=== PATIENT | female | born 1940 | race Two or more races ===

== ENCOUNTER 2018-01-19 14:55 | Emergency (ER) | payer OTHER ==
[~2018-01-19] VITALS: Ht 157.5 cm; Wt 69.9 kg
[~2018-01-19 14:55] MED LIST: AMLODIPINE BESI25 GM; AMOX1TAB12 PO; CIPRO750 MG PO; CLONAZEPAM1 MG PO; COLACE100 MG PO; DICLOFENAC SODI50 MG PO; METHYLPRED4 MG/DOSE- PO; METOPROLOL SUCC25 MG; NEURONTIN300 MG PO; NEURONTIN800 MG PO; PERCOCET 10-3251 TAB; PERCOCET 5/3251 TAB PO; SIMVASTATIN5 MG; SULFAMETHOXAZOL1 TA6 PO; SYNTHROID50 MCG
== END 2018-01-19 18:07 | disposition home or self-care (01) ==
LOC: ER 14:55
DX: R42 Dizziness and giddiness (principal)

== ENCOUNTER 2018-06-01 15:52 | Outpatient (CLI) | payer OTHER | END 2018-06-01 16:30 | disposition home or self-care (01) | LOC: RAD 15:52 | DX: M25.552 Pain in left hip (principal); M25.551 Pain in right hip ==

== ENCOUNTER 2019-08-15 09:44 | Outpatient (CLI) | payer OTHER | END 2019-08-15 09:45 | disposition home or self-care (01) | LOC: RAD 09:44 | DX: M21.762 Unequal limb length (acquired), left tibia (principal) ==

== ENCOUNTER 2021-01-28 13:52 | Emergency (ER) | payer OTHER ==
[~2021-01-28] VITALS: Ht 157.5 cm; Wt 68.0 kg
[2021-01-28] MEDS ORDERED: ORPHENADRINE C100 MG PO (19:18)
[2021-01-28] MEDS ORDERED: NAPROXEN250 MG PO (19:18)
[2021-01-28] MEDS ORDERED: MEDROLPACK PO (19:18)
== END 2021-01-28 19:40 | disposition home or self-care (01) ==
LOC: ER 13:52
DX: M25.551 Pain in right hip (principal); M54.5 Low back pain; R10.2 Pelvic and perineal pain; Z03.818 Encounter for observation for suspected exposure to other biological agents ruled out

== ENCOUNTER 2021-05-12 13:04 | Emergency (ER) | payer OTHER ==
[~2021-05-12] VITALS: Ht 157.5 cm; Wt 65.8 kg
[~2021-05-12 13:04] MED LIST changes: +MEDROLPACK PO; +NAPROXEN250 MG PO; +ORPHENADRINE C100 MG PO
[2021-05-12] MEDS ORDERED: PLAVIX75 MG (13:55)
[2021-05-12] MEDS ORDERED: AVAPRO150 MG (13:55)
[2021-05-12] MEDS ORDERED: LIPITOR40 M1 (13:56)
[2021-05-12] MEDS ORDERED: TYLENOL ARTHRI650 MG (13:56)
== END 2021-05-12 17:54 | disposition home or self-care (01) ==
LOC: ER 13:04
DX: M75.51 Bursitis of right shoulder (principal); M13.811 Other specified arthritis, right shoulder

== ENCOUNTER 2021-12-18 13:32 | Outpatient (CLI) | payer OTHER ==
[~2021-12-18 13:32] MED LIST changes: +AVAPRO150 MG; +LIPITOR40 M1; +PLAVIX75 MG; +TYLENOL ARTHRI650 MG
== END 2021-12-18 13:41 | disposition home or self-care (01) ==
LOC: RAD 13:32
PROVIDERS: ATTEND Urology
DX: M24.672 Ankylosis, left ankle (principal)

== ENCOUNTER 2022-01-03 11:32 | Outpatient (CLI) | payer OTHER | END 2022-01-03 11:39 | disposition home or self-care (01) | LOC: SONOGRAMA 11:32 | PROVIDERS: ATTEND Internal Medicine Cardiovascular Disease | DX: N39.0 Urinary tract infection, site not specified (principal) ==

== ENCOUNTER 2022-11-02 21:02 | Emergency (ER) | payer OTHER ==
[~2022-11-02] VITALS: Ht 160 cm; Wt 63.5 kg
== END 2022-11-03 10:10 | disposition designated cancer center or children's hospital (05) ==
LOC: ER 21:02
DX: I24.9 Acute ischemic heart disease, unspecified (principal); I10 Essential (primary) hypertension; E78.00 Pure hypercholesterolemia, unspecified; Z88.2 Allergy status to sulfonamides; Z91.041 Radiographic dye allergy status; Z91.013 Allergy to seafood

== ENCOUNTER 2022-12-23 09:25 | Outpatient (CLI) | payer OTHER | END 2022-12-23 09:32 | disposition home or self-care (01) | LOC: SONOGRAMA 09:25 | PROVIDERS: ATTEND Otolaryngology | DX: R31.1 Benign essential microscopic hematuria (principal); R13.10 Dysphagia, unspecified ==

== ENCOUNTER → 2023-01-15 | Outpatient (CLI) | payer OTHER | END | disposition home or self-care (01) | LOC: TOM 10:03 | PROVIDERS: ATTEND Internal Medicine Cardiovascular Disease | DX: R51.9 Headache, unspecified (principal); I63.50 Cerebral infarction due to unspecified occlusion or stenosis of unspecified cerebral artery; I10 Essential (primary) hypertension ==

== ENCOUNTER 2023-05-29 12:05 | Outpatient (CLI) | payer OTHER | END 2023-05-29 12:09 | disposition home or self-care (01) | LOC: RAD 12:05 | PROVIDERS: ATTEND Internal Medicine Cardiovascular Disease | DX: M12.9 Arthropathy, unspecified (principal) ==

== ENCOUNTER → 2023-10-22 | Outpatient (CLI) | payer OTHER | END | disposition home or self-care (01) | LOC: RAD 13:00 | PROVIDERS: ATTEND Internal Medicine Pulmonary Disease | DX: J01.90 Acute sinusitis, unspecified (principal); R07.9 Chest pain, unspecified ==

== ENCOUNTER 2024-01-15 10:24 | Outpatient (CLI) | payer OTHER ==
[~2024-01-15 10:24] MED LIST changes: +DICLOFENAC POTA50 MG PO
== END 2024-01-15 10:32 | disposition home or self-care (01) ==
LOC: RAD 10:24
PROVIDERS: ATTEND Psychiatry & Neurology Clinical Neurophysiology
DX: M12.9 Arthropathy, unspecified (principal)

== ENCOUNTER 2024-06-16 17:43 | Emergency (ER) | payer OTHER ==
[~2024-06-16] VITALS: Ht 157.5 cm; Wt 65.8 kg
[2024-06-16] MEDS ORDERED: EZETIMIBE10 MG (18:23)
[2024-06-16] MEDS ORDERED: SYNTHROID75 MCG (18:23)
[2024-06-16] MEDS ORDERED: RANOLAZINE ER500 MG (18:23)
[2024-06-16] MEDS ORDERED: ROSUVASTATIN CA40 MG (18:23)
[2024-06-16] MEDS ORDERED: CHILDREN'S ASPI81 MG (18:24)
[2024-06-16] MEDS ORDERED: AMOX1TAB5 PO (19:15)
[2024-06-16] MEDS ORDERED: XANAX0.25 MG PO (19:17)
[2024-06-16] MEDS ORDERED: TETANUS & DIPHTHERIA TOX,ADULT 0.5 ML VIAL IM STA (19:19)
[2024-06-16] MEDS ORDERED: TETANUS DIPHTHERIA TOX. ADSOR 5 ML VIAL IM ONE (19:24)
== END 2024-06-16 19:59 | disposition home or self-care (01) ==
LOC: ER 17:45
DX: S81.812A Laceration without foreign body, left lower leg, initial encounter (principal); W54.0XXA Bitten by dog, initial encounter; Y93.89 Activity, other specified; Y92.89 Other specified places as the place of occurrence of the external cause; Z91.041 Radiographic dye allergy status; Z91.013 Allergy to seafood; E78.00 Pure hypercholesterolemia, unspecified; I10 Essential (primary) hypertension; E03.8 Other specified hypothyroidism; I20.89 Other forms of angina pectoris
CPT/HCPCS: 90471; 90714; 99282; J1670

== ENCOUNTER 2024-06-28 10:31 | Outpatient (CLI) | payer OTHER ==
[~2024-06-28 10:31] MED LIST changes: +AMOX1TAB5 PO; +CHILDREN'S ASPI81 MG; +EZETIMIBE10 MG; +RANOLAZINE ER500 MG; +ROSUVASTATIN CA40 MG; +SYNTHROID75 MCG; +XANAX0.25 MG PO
== END 2024-06-28 10:58 | disposition home or self-care (01) ==
LOC: TOM 10:31
DX: S82.62XA Displaced fracture of lateral malleolus of left fibula, initial encounter for closed fracture (principal); M19.011 Primary osteoarthritis, right shoulder; M19.012 Primary osteoarthritis, left shoulder

== ENCOUNTER 2024-07-26 14:43 | Outpatient (CLI) | payer OTHER | END 2024-07-26 14:53 | disposition home or self-care (01) | LOC: TOM 14:43 | PROVIDERS: ATTEND Psychiatry & Neurology Clinical Neurophysiology | DX: S06.330A Contusion and laceration of cerebrum, unspecified, without loss of consciousness, initial encounter (principal) ==

== ENCOUNTER 2024-07-26 15:46 | Emergency (ER) | payer OTHER ==
[~2024-07-26] VITALS: Ht 157.5 cm; Wt 64.4 kg
[2024-07-26 16:27] VITALS: BP 131/77; O2SAT 99
[2024-07-26 17:10] LABS: HEMOGLOBIN 11.4 g/dL (12.0-15.00); MEAN CELL VOLUME 86.1 fL (80.00-100.00); MEAN CORPUSCULAR HEMOGLOBIN 28.1 pg (27.00-32.0); MEAN CORPUSCULAR HGB CONC 32.6 g/dl (32.0-36.0); PLATELET COUNT 252 K/uL (150-450); RED BLOOD COUNT 4.07 M/uL (4.00-6.00); RED CELL DISTRIBUTION WIDTH 17.4 % (11.5-14.5)
== END 2024-07-26 19:48 | disposition home or self-care (01) ==
LOC: ER 15:47
PROVIDERS: General Practice
DX: R53.81 Other malaise (principal); R53.1 Weakness; Z20.822 Contact with and (suspected) exposure to COVID-19; I10 Essential (primary) hypertension; Z91.013 Allergy to seafood; Z91.041 Radiographic dye allergy status

== ENCOUNTER → 2024-08-19 12:03 | Outpatient (CLI) | payer OTHER | END | disposition home or self-care (01) | LOC: NUCLEAR 12:03 | PROVIDERS: ATTEND Internal Medicine Endocrinology, Diabetes & Metabolism | DX: M85.89 Other specified disorders of bone density and structure, multiple sites (principal); Z13.820 Encounter for screening for osteoporosis; M81.0 Age-related osteoporosis without current pathological fracture ==

== ENCOUNTER 2024-10-13 13:50 | Emergency (ER) | payer OTHER ==
[~2024-10-13] VITALS: Ht 157.5 cm; Wt 64.4 kg
[2024-10-13] MEDS ORDERED: AZITHROMYCIN 500 MG VIAL IV ONE ×2 (16:36→16:45)
[2024-10-13] MEDS ORDERED: GUAIFENESIN/DEXTROMETHORPHAN 10ML BLIST.PACK PO ONE ×2 (16:36→16:45)
[2024-10-13] MEDS ORDERED: METHYLPREDNISOLONE SOD SUCC 125 MG VIAL ONE (16:36)
[2024-10-13] MEDS ORDERED: LEVALBUTEROL HCL 1.25 MG/3 ML SOLUTION IH SCH (16:45)
[2024-10-13] MEDS ORDERED: METHYLPREDNISOLONE SOD SUCC 125 MG VIAL IV ONE (16:45)
[2024-10-13] MEDS ORDERED: LEVALBUTEROL HCL 1.25 MG/3 ML SOLUTION IH ONE ×2 (16:50→18:23)
[2024-10-13 17:17] LABS: HEMATOCRIT 38.1 % (36.0-45.00); HEMOGLOBIN 12.6 g/dL (12.0-15.00); MEAN CELL VOLUME 83.5 fL (80.00-100.00); MEAN CORPUSCULAR HEMOGLOBIN 27.6 pg (27.00-32.0); PLATELET COUNT 275 K/uL (150-450); RED BLOOD COUNT 4.56 M/uL (4.00-6.00); RED CELL DISTRIBUTION WIDTH 17.9 % (11.5-14.5)
[2024-10-13 17:41] LABS: ALBUMIN 3.1 gm/dL (3.4-5.0); BILIRUBIN TOTAL 0.27 mg/dL (0.3-1.2); CALCIUM 9.2 mg/dL (8.5-10.1); CREATININE SERUM 1.25 mg/dL (0.55-1.02); GFR 40.83; GLOBULINA 3.6 G/DL (2.4-3.5); POTASSIUM 4.57 mEq/L (3.5-5.1); TOTAL PROTEIN 6.7 gm/dL (6.4-8.2)
[2024-10-13] MEDS ORDERED: XOPENEX CO1.25 MG/0. IH (19:16)
[2024-10-13] MEDS ORDERED: TUSNEL LIQUID178 ML PO (19:16)
[2024-10-13] MEDS ORDERED: NASAL MIST126 ML NASAL (19:16)
[2024-10-13] MEDS ORDERED: ZITHROMAX500 MG PO (19:16)
== END 2024-10-13 20:32 | disposition home or self-care (01) ==
LOC: ER 13:52
PROVIDERS: General Practice
DX: J06.9 Acute upper respiratory infection, unspecified (principal); R06.02 Shortness of breath; Z20.822 Contact with and (suspected) exposure to COVID-19; I10 Essential (primary) hypertension; Z91.013 Allergy to seafood; Z91.041 Radiographic dye allergy status
CPT/HCPCS: 36415; 71250; 96365; 99284; J0456; J3490

== ENCOUNTER 2024-12-15 09:04 | Emergency (ER) | payer OTHER ==
[~2024-12-15] VITALS: Ht 157.5 cm; Wt 65.8 kg
[~2024-12-15 09:04] MED LIST changes: +NASAL MIST126 ML NASAL; +TUSNEL LIQUID178 ML PO; +XOPENEX CO1.25 MG/0. IH; +ZITHROMAX500 MG PO
[2024-12-15] MEDS ORDERED: KAPSPARGO SPRIN25 MG (09:36)
[2024-12-15] MEDS ORDERED: COZAAR25 MG (09:37)
[2024-12-15] MEDS ORDERED: DAFLONEX-XL 11300 MG (09:38)
[2024-12-15] MEDS ORDERED: KETOROLAC TROMETHAMINE 30 MG VIAL IM STA (10:19)
[2024-12-15] MEDS ORDERED: DEXAMETHASONE SODIUM PHOSPHATE 4 MG/ML VIAL IM STA (10:19)
[2024-12-15 11:00] LABS: HEMATOCRIT 40.9 % (36.0-45.00); HEMOGLOBIN 13.3 g/dL (12.0-15.00); MEAN CELL VOLUME 85.6 fL (80.00-100.00); MEAN CORPUSCULAR HEMOGLOBIN 27.9 pg (27.00-32.0); MEAN CORPUSCULAR HGB CONC 32.6 g/dl (32.0-36.0); PLATELET COUNT 229 K/uL (150-450); RED BLOOD COUNT 4.78 M/uL (4.00-6.00); RED CELL DISTRIBUTION WIDTH 17.3 % (11.5-14.5)
[2024-12-15] MEDS ORDERED: DICLOFENAC POTA50 MG PO (12:33)
[2024-12-15] MEDS ORDERED: AMOX-CLAV 875-1 EACH PO (12:33)
[2024-12-15] MEDS ORDERED: INTESTINEX680 M1 PO (12:33)
[2024-12-15] MEDS ORDERED: CEFTRIAXONE SODIUM 1,000 MG VIAL IM STA (12:36)
== END 2024-12-15 12:51 | disposition home or self-care (01) ==
LOC: ER 09:06
PROVIDERS: General Practice
DX: L03.116 Cellulitis of left lower limb (principal); M25.472 Effusion, left ankle; M25.572 Pain in left ankle and joints of left foot; I10 Essential (primary) hypertension; E03.8 Other specified hypothyroidism; Z91.013 Allergy to seafood; Z91.041 Radiographic dye allergy status
CPT/HCPCS: 36415; 73610; 96372; 99283; J0696; J1100; J1885

== ENCOUNTER 2025-05-22 10:00 | Outpatient (CLI) | payer OTHER ==
[~2025-05-22 10:00] MED LIST changes: +AMOX-CLAV 875-1 EACH PO; +COZAAR25 MG; +DAFLONEX-XL 11300 MG; +INTESTINEX680 M1 PO; +KAPSPARGO SPRIN25 MG
== END 2025-05-22 10:01 | disposition home or self-care (01) ==
LOC: NUCLEAR 10:00
PROVIDERS: ATTEND Psychiatry & Neurology Clinical Neurophysiology
DX: I73.9 Peripheral vascular disease, unspecified (principal); I87.2 Venous insufficiency (chronic) (peripheral)

== ENCOUNTER 2025-09-27 09:51 | Emergency (ER) | payer OTHER ==
[~2025-09-27] VITALS: Ht 157.5 cm; Wt 65.8 kg
[2025-09-27] MEDS ORDERED: IRBESARTAN75 MG (10:16)
[2025-09-27] MEDS ORDERED: BIDIL TABLET1 EACH (10:16)
[2025-09-27] MEDS ORDERED: ASPRUZYO SPRIN500 MG (10:16)
[2025-09-27] MEDS ORDERED: ORPHENADRINE CITRATE 30 MG/ML AMPUL IV ONE (11:30)
[2025-09-27] MEDS ORDERED: DEXAMETHASONE SODIUM PHOSPHATE 4 MG/ML VIAL IV ONE (11:30)
[2025-09-27] MEDS ORDERED: ENOXAPARIN SODIUM 60 MG/0.6 ML SYRINGE SUBCUTANEO ONE ×2 (11:30→11:48)
[2025-09-27] MEDS ORDERED: KETOROLAC TROMETHAMINE 30 MG VIAL IV ONE (11:30)
[2025-09-27] MEDS ORDERED: ORPHENADRINE CITRATE 30 MG/ML AMPUL ONE (11:48)
[2025-09-27] MEDS ORDERED: DEXAMETHASONE SODIUM PHOSPHATE 4 MG/ML VIAL ONE (11:48)
[2025-09-27] MEDS ORDERED: KETOROLAC TROMETHAMINE 30 MG VIAL ONE (11:48)
[2025-09-27 12:36] LABS: BASO % 0.3 % (0.1-1.2); EOS # 0.00 (0.04-0.54); EOS % 0.0 % (0.7-7.0); LYMPH # 1.62 (1.18-3.74); LYMPH % 18.6 % (19.3-53.1); MEAN PLATELET VOLUME 9.70 fl (9.4-12.4); MONO # 1.46 (0.24-0.82); NEUT # 5.56 (1.56-6.13); NEUT % 64.0 % (34.0-71.1); RED CELL DISTRIBUTION WIDTH 14.3 % (11.6-14.4)
[2025-09-27 12:39] LABS: MONO % 16.8 % (4.7-12.5)
[2025-09-27 12:41] LABS: ERYTHROCYTE SEDIMENTATION RATE 69 mm/hr (0-30)
[2025-09-27 13:24] LABS: ALT/SGPT 22.0 U/L (12-78); AST/SGOT 18.0 U/L (15-37); BILIRUBIN TOTAL 0.49 mg/dL (0.3-1.2); BUN CREA RATIO 21.0 (7.0-25.0); CREATININE SERUM 1.11 mg/dL (0.55-1.02); GFR 46.72; GLOBULINA 3.5 G/DL (2.4-3.5); GLUCOSE FASTING 96.0 mg/dL (65-100); OSMOLALITY SERUM 283.0 MOSM/KG (275-295)
[2025-09-27] MEDS ORDERED: TYLENOL ARTHRI650 MG PO (16:00)
[2025-09-27] MEDS ORDERED: MEDROLPACK PO (16:00)
[2025-09-27] MEDS ORDERED: NORFLEX100MG PO (16:00)
[2025-09-27] MEDS ORDERED: ECOTRIN81 MG PO (16:00)
[2025-09-27] MEDS ORDERED: ATORVASTATIN CA40 MG PO (16:00)
== END 2025-09-27 16:29 | disposition home or self-care (01) ==
LOC: ER 09:51
PROVIDERS: Student in an Organized Health Care Education/Training Program
DX: M77.32 Calcaneal spur, left foot (principal); R60.0 Localized edema; I70.209 Unspecified atherosclerosis of native arteries of extremities, unspecified extremity; I10 Essential (primary) hypertension; Z91.013 Allergy to seafood; Z91.041 Radiographic dye allergy status
CPT/HCPCS: 36415; 73630; 93926; 93971; 96365; 99284; J1100; J1885; J2360